=== PATIENT | male | born 1955 | race Caucasian/White ===

== ENCOUNTER 2022-01-26 08:19 | Inpatient (IN) | payer BC ==
[2022-01-26 08:39] LABS: #Basophils 0.1 thou/uL (0.0-0.2); #Eosinphils 0.2 thou/uL (0.0-0.7); #Lymphocytes 2.1 thou/uL (1.20-3.40); #Monocytes 0.9 thou/uL (0.11-0.59); %Basophils 0.6 % (0.0-1.0); %Eosinophils 1.4 % (0.0-10.0); %Lymphocytes 18.6 % (21.0-51.0); %Neutrophils 71.4 % (42.0-75.0); Hemoglobin 16.1 g/dL (14.0-18.0); Mean Corpuscular HGB CONC 35.8 g/dL (32.0-36.0); Mean Corpuscular Hemoglobin 35.5 pg (27.0-31.0); Mean Corpuscular Volume 99.2 fL (78.0-98.0); Mean Platelet Volume 7.2 fL (7.4-10.4); Platelet Count 307 thou/uL (130-400); RBC Distribution Width 12.4 % (11.5-14.5); Red Blood Cell (RBC) Count 4.55 mill/uL (4.70-6.10); White Blood Cell (WBC) Count 11.1 thou/uL (4.8-10.8)
[2022-01-26 08:52] LABS: PTT 24.3 sec (22.9-36.1); Prothrombin Time 13.1 sec (12.0-14.7)
[2022-01-26 09:03] LABS: ALT (SGPT) 21 U/L (8-55); AST (SGOT) 21 U/L (5-34); Albumin 4.5 g/dL (3.4-4.8); Alkaline Phosphatase 55 U/L (40-110); Anion Gap 18 mmol/L (10-20); BUN (Urea Nitrogen) 17 mg/dL (8.4-25.7); Bilirubin, Total 0.8 mg/dL (0.2-1.2); CK (CPK) 80 U/L (30-200); Calc. Creatinine Clearance 0 mL/min (70-130); Calcium 9.5 mg/dL (7.8-10.44); Carbon Dioxide 19 mmol/L (23-31); Chloride 103 mmol/L (98-107); Globulin 2.9 g/dL (2.4-3.5); Glucose 133 mg/dL (80-115); Potassium 3.9 mmol/L (3.5-5.1); Protein, Total 7.4 g/dL (5.8-8.1); Sodium 136 mmol/L (136-145)
[2022-01-26] MEDS ORDERED: Iopamidol-370 76% 500 ML 1 ML ONE (09:45)
[2022-01-26] MEDS ORDERED: HYDROcodone/Acetaminophen 5/325 mg Tablet PO PRN (10:00)
[2022-01-26] MEDS ORDERED: Ondansetron PF 4 MG/2 ML Vial IVP PRN (10:00)
[2022-01-26] MEDS ORDERED: Acetaminophen 325 MG TAB PO PRN (10:00)
[2022-01-26] MEDS ORDERED: Sodium Chloride 0.9% 1,000 ML IV SCH (10:00)
[2022-01-26] MEDS ORDERED: Clopidogrel Bisulfate 75 MG TAB PO SCH (11:30)
[2022-01-26] MEDS ORDERED: Aspirin 81 mg Enteric Coated Tablet PO SCH (11:30)
[2022-01-26 12:09] VITALS: BMI 29.5
[2022-01-26 12:44] LABS: Troponin I Less than 0.010 ng/mL (< 0.028)
[2022-01-26] MEDS: Aspirin 81 mg Enteric Coated Tablet PO SCH (13:43)
[2022-01-26] MEDS: Nicotine 21 MG PATCH TD SCH (13:44)
[2022-01-26 15:00] LABS: Troponin I Less than 0.010 ng/mL (< 0.028)
[2022-01-26] MEDS ORDERED: Atorvastatin Calcium 40 MG TAB PO SCH (21:00)
[2022-01-27 00:05] LABS: SARS-CoV-2 PCR by NAA Not Detected (NotDetected)
[2022-01-27 05:33] LABS: #Basophils 0.1 thou/uL (0.0-0.2); #Eosinphils 0.3 thou/uL (0.0-0.7); #Lymphocytes 2.3 thou/uL (1.20-3.40); #Monocytes 0.9 thou/uL (0.11-0.59); #Neutrophils 6.6 thou/uL (1.40-6.50); %Basophils 0.7 % (0.0-1.0); %Eosinophils 2.5 % (0.0-10.0); %Lymphocytes 22.8 % (21.0-51.0); %Monocytes 9.1 % (0.0-10.0); %Neutrophils 64.8 % (42.0-75.0); Hemoglobin 15.9 g/dL (14.0-18.0); Mean Corpuscular HGB CONC 33.4 g/dL (32.0-36.0); Mean Corpuscular Hemoglobin 33.3 pg (27.0-31.0); Mean Corpuscular Volume 99.7 fL (78.0-98.0); Mean Platelet Volume 6.9 fL (7.4-10.4); Platelet Count 286 thou/uL (130-400); RBC Distribution Width 11.9 % (11.5-14.5); Red Blood Cell (RBC) Count 4.76 mill/uL (4.70-6.10); White Blood Cell (WBC) Count 10.1 thou/uL (4.8-10.8)
[2022-01-27 05:42] LABS: Hemoglobin A1c 5.9 % (4.0-6.0)
[2022-01-27 05:55] LABS: ALT (SGPT) 19 U/L (8-55); AST (SGOT) 17 U/L (5-34); Alkaline Phosphatase 50 U/L (40-110); Anion Gap 13 mmol/L (10-20); BUN (Urea Nitrogen) 19 mg/dL (8.4-25.7); Calc. Creatinine Clearance 122 mL/min (70-130); Carbon Dioxide 21 mmol/L (23-31); Cardiac Risk 3.9 (Less than 4.5); Chloride 107 mmol/L (98-107); Cholesterol 163 mg/dl (< 200 Desired); Glucose 107 mg/dL (80-115); HDL Cholesterol 42 mg/dL (>60 Neg Risk); LDL Cholesterol, Calculated 94 mg/dL; Potassium 3.7 mmol/L (3.5-5.1); Sodium 137 mmol/L (136-145); Triglycerides 133 mg/dL (Less than 150)
[2022-01-27] MEDS ORDERED: Folic Acid 1 MG TAB PO SCH (09:00)
[2022-01-27] MEDS ORDERED: Clopidogrel Bisulfate 75 MG TAB PO SCH (09:00)
[2022-01-27] MEDS ORDERED: Thiamine 100 MG TAB PO SCH (09:00)
[2022-01-27] MEDS: Aspirin 81 mg Enteric Coated Tablet PO SCH (11:56)
[2022-01-27 12:14] VITALS: BP 157/87; TEMP 97.4
[2022-01-27] MEDS: Nicotine 21 MG PATCH TD SCH (13:41)
[2022-01-27] MEDS ORDERED: Amlodipine 10 MG TAB PO SCH (13:45)
[2022-01-27] MEDS ORDERED: Hydrochlorothiazide 25 MG TAB PO SCH (13:45)
[2022-01-27] MEDS ORDERED: Losartan 25 MG TAB PO SCH (13:45)
[2022-01-28] MEDS ORDERED: Hydrochlorothiazide 25 MG TAB PO SCH (09:00)
[2022-01-28] MEDS ORDERED: Amlodipine 10 MG TAB PO SCH (09:00)
[2022-01-28] MEDS ORDERED: Losartan 25 MG TAB PO SCH (09:00)
== END 2022-01-27 14:49 | disposition home or self-care (01) | DRG 68 ==
LOC: ERS 08:19 → NEURO 09:36
PROVIDERS: ADMIT Internal Medicine; ATTEND Internal Medicine
DX: I65.22 Occlusion and stenosis of left carotid artery (principal); Z20.822 Contact with and (suspected) exposure to COVID-19; Z23 Encounter for immunization; F17.210 Nicotine dependence, cigarettes, uncomplicated; F10.10 Alcohol abuse, uncomplicated; E78.5 Hyperlipidemia, unspecified; I10 Essential (primary) hypertension; Z71.6 Tobacco abuse counseling; Z79.899 Other long term (current) drug therapy
CPT/HCPCS: 36415; 70450; 70496; 70498; 70551; 71045; 80053; 80061; 82550; 83036; 84443; 84484; 85025; 85610; 85730; 90471; 90732; 93005; 93306; 94760; G0009; J7050; Q9967; U0003; U0005

== ENCOUNTER 2022-01-31 08:30 | Inpatient (IN) | payer BC ==
[2022-01-31 10:28] VITALS: BMI 29.4
[2022-02-01] MEDS ORDERED: Bupivacaine PF 0.5% 30 ML VIAL ONE (06:26)
[2022-02-01] MEDS ORDERED: Protamine Sulfate 50 MG/5 ML VIAL ONE (06:26)
[2022-02-01] MEDS ORDERED: Heparin 5,000 UNITS/ML VIAL ONE (06:26)
[2022-02-01] MEDS ORDERED: EPINEPHrine 1 MG/ML AMP ONE (06:26)
[2022-02-01] MEDS ORDERED: fentaNYL Citrate/PF 100 MCG/2 ML SYRINGE ONE (07:11)
[2022-02-01] MEDS ORDERED: PROPOFOL 200 MG/20 ML VIAL ONE (07:58)
[2022-02-01] MEDS ORDERED: Rocuronium Bromide 10 MG/ML (10ML VIAL) ONE (07:58)
[2022-02-01] MEDS ORDERED: CEFAZOLIN 2 GM VIAL ONE (07:58)
[2022-02-01] MEDS ORDERED: Dexamethasone 20 MG/5 ML VIAL ONE (07:58)
[2022-02-01] MEDS ORDERED: Ketorolac Tromethamine 30 MG/ML VIAL ONE (07:58)
[2022-02-01] MEDS ORDERED: Glycopyrrolate 0.2 MG/ML 5 ML SYRINGE ONE (07:58)
[2022-02-01] MEDS ORDERED: Esmolol 100 MG/10 ML VIAL ONE (07:58)
[2022-02-01] MEDS ORDERED: Ondansetron PF 4 MG/2 ML Vial ONE (07:58)
[2022-02-01] MEDS ORDERED: Sodium Chloride 0.9% 100 ML ONE (07:58)
[2022-02-01] MEDS ORDERED: ePHEDrine 50 MG/ML VIAL ONE (07:58)
[2022-02-01] MEDS ORDERED: Ondansetron PF 4 MG/2 ML Vial IVP PRN (10:02)
[2022-02-01] MEDS ORDERED: Sodium Chloride 0.9% 1,000 ML IV SCH (10:02)
[2022-02-01] MEDS ORDERED: Acetaminophen 325 MG TAB PO PRN (10:02)
[2022-02-01] MEDS ORDERED: Nitroglycerin 50 MG/250 ML BOT 250 ML IVPB PRN (10:02)
[2022-02-01] MEDS ORDERED: HYDROcodone/Acetaminophen 5/325 mg Tablet PO PRN ×2 (10:02)
[2022-02-01] MEDS ORDERED: Phenylephrine 40 MG in Sodium Chloride 0.9% 250 ML 246 ML IVPB PRN (10:02)
[2022-02-01] MEDS ORDERED: Fentanyl 100 MCG/2 ML VIAL SLOW IVP PRN ×2 (10:02)
[2022-02-01] MEDS ORDERED: ceFAZolin 2 GM/Dextrose 50 ML 2 GM in Premix Bag 1 BAG IVPB SCH (10:02)
[2022-02-01] MEDS: CEFAZOLIN 2 GM in Sodium Chloride 0.9% 100 ML IVPB SCH (16:56)
[2022-02-02] MEDS: CEFAZOLIN 2 GM in Sodium Chloride 0.9% 100 ML IVPB SCH ×2 (00:12→07:35)
[2022-02-02 08:24] VITALS: BP 148/78
[2022-02-02 08:25] VITALS: TEMP 97.8
[2022-02-02] MEDS ORDERED: Amlodipine 10 MG TAB PO SCH (09:00)
[2022-02-02] MEDS ORDERED: Hydrochlorothiazide 25 MG TAB PO SCH (09:00)
[2022-02-02] MEDS ORDERED: Losartan 25 MG TAB PO SCH (09:00)
[2022-02-02] MEDS ORDERED: Aspirin Chewable 81 MG TAB PO SCH (09:00)
[2022-02-02] MEDS ORDERED: Non-Formulary Item 1 EACH (Losartan/Hydrochlorothiazide [Losartan-Hctz 100-12.5 Mg Tab] 1 PO SCH (09:00)
[2022-02-02] MEDS ORDERED: Atorvastatin Calcium 40 MG TAB PO SCH (09:00)
[2022-02-02] MEDS ORDERED: Clopidogrel Bisulfate 75 MG TAB PO SCH ×2 (09:00)
== END 2022-02-02 08:57 | disposition home or self-care (01) | DRG 39 ==
LOC: SURG A 02-01 05:55 → CCU 02-01 11:54
PROVIDERS: ADMIT Thoracic Surgery (Cardiothoracic Vascular Surgery); ATTEND Thoracic Surgery (Cardiothoracic Vascular Surgery)
PROC: 03CL0ZZ Extirpation of Matter from Left Internal Carotid Artery, Open Approach (ICD-10-PCS; principal; 2022-02-01)
PROC: 03UL0KZ Supplement Left Internal Carotid Artery with Nonautologous Tissue Substitute, Open Approach (ICD-10-PCS; 2022-02-01)
DX: I65.22 Occlusion and stenosis of left carotid artery (principal); Z20.822 Contact with and (suspected) exposure to COVID-19; I10 Essential (primary) hypertension; E78.5 Hyperlipidemia, unspecified; F17.210 Nicotine dependence, cigarettes, uncomplicated; Z86.73 Personal history of transient ischemic attack (TIA), and cerebral infarction without residual deficits; Z79.899 Other long term (current) drug therapy; Z98.890 Other specified postprocedural states
CPT/HCPCS: C1768; C1776; J0171; J1100; J1642; J1644; J1885; J2405; J2704; J2720; J3010; J3490; J7050; S0020